=== PATIENT | female | born 1935 | race Caucasian/White ===

== ENCOUNTER 2020-01-05 15:54 | Emergency (ER) | payer MEDICARE, OTHER ==
[~2020-01-05] VITALS: Ht 152.4 cm; Wt 46.4 kg
[2020-01-05] MEDS ORDERED: [UNRECOGNIZED DRUG - OTHER] PO (16:00)
[2020-01-05] MEDS ORDERED: PANT-31 PO (16:00)
[2020-01-05] MEDS ORDERED: CIPR-278 PO (16:00)
[2020-01-05] MEDS ORDERED: 0.9% SODIUM CHLORIDE 10 ML SYRINGE IVP PRN (16:15)
[2020-01-05 16:39] LABS: BASOPHILS % (AUTO) 0.3 % (0.0-2.0); EOSINOPHILS % (AUTO) 0.3 % (1.0-6.0); HEMATOCRIT 36.1 % (36-46); HEMOGLOBIN 11.8 g/dL (12.0-16.0); LYMPHOCYTES # (AUTO) 2.3 K/uL (1.0-4.8); LYMPHOCYTES % (AUTO) 27.8 % (22.0-44.0); MEAN CORPUSCULAR HEMOGLOBIN 29.5 pg (26.0-34.0); MEAN CORPUSCULAR HGB CONC 32.6 G/dL (31.0-37.0); MEAN CORPUSCULAR VOLUME 90 fL (80-100); MONOCYTES # (AUTO) 0.6 K/uL (0.1-1.0); NEUTROPHILS # (AUTO) 5.4 K/uL (1.8-7.7); NEUTROPHILS % (AUTO) 64.6 % (40.0-70.0); PLATELET COUNT (AUTO) 274 K/uL (150-450); RED BLOOD CELL COUNT(AUTO) 3.99 MIL/uL (4.00-5.20)
[2020-01-05] MEDS ORDERED: SODIUM CHLORIDE 0.9% 1,000 ML IV ONE (16:45)
[2020-01-05 16:51] LABS: ANION GAP 10 mmol/L (8-16); CALCIUM, TOTAL 9.1 mg/dL (8.8-10.5); CARBON DIOXIDE 26 mmol/L (22-29); CHLORIDE 103 mmol/L (98-107); CREATININE 0.83 mg/dL (0.60-1.30); GLUCOSE,RANDOM 114 mg/dL (70-110); POTASSIUM 3.9 mmol/L (3.5-5.1); SODIUM SERUM 139 mmol/L (136-145); UREA NITROGEN, BLOOD 8 mg/dL (7-18)
[2020-01-05 16:53] LABS: GLOMERULAR FILTR. RATE CALC > 60 mL/min (>60)
[2020-01-05 16:57] LABS: ALANINE AMINOTRANSFERASE 27 U/L (12-78); ALKALINE PHOSPHATASE 53 U/L (46-116); ASPARTATE AMINOTRANSFERASE 24 U/L (15-37); BILIRUBIN,TOTAL 0.4 mg/dL (0.1-1.0); LIPASE 254 U/L (73-393); TOTAL PROTEIN, SERUM 6.6 g/dL (6.4-8.2)
[2020-01-05 17:00] LABS: B-TYPE NATRIURETIC PEPTIDE 83 pg/mL (0-100); LACTIC ACID 0.6 mmol/L (0.4-2.0)
[2020-01-05 17:18] LABS: APPEARANCE,URINE TURBID (CLEAR); BILIRUBIN,URINE NEGATIVE (NEGATIVE); GLUCOSE, URINE (UA) NEGATIVE (NEGATIVE); KETONES,URINE NEGATIVE (NEGATIVE); LEUKOCYTE ESTERASE ,URINE MODERATE (NEGATIVE); NITRATE,URINE POSITIVE (NEGATIVE); OCCULT BLOOD,URINE NEGATIVE (NEGATIVE); PROTEIN,URINE NEGATIVE (NEGATIVE)
[2020-01-05 17:31] LABS: BACTERIA,URINE Many /HPF (None Seen)
[2020-01-05 17:32] LABS: RBC,URINE None Seen /HPF (0-2); SQUAMOUS EPITHELIAL CELL,UR Moderate /LPF (None Seen)
[2020-01-05] MEDS ORDERED: ONDANSETRON HCL 4 MG/2 ML VIAL IVP ONE (18:00)
[2020-01-05] MEDS ORDERED: FentaNYL CITRATE-PF 100 MCG/2 ML VIAL IVP ONE (18:00)
[2020-01-05 18:25] VITALS: BP 138/80
== END 2020-01-05 19:05 | disposition home or self-care (01) ==
LOC: EMS 15:54
DX: N39.0 Urinary tract infection, site not specified (principal); R19.7 Diarrhea, unspecified; I10 Essential (primary) hypertension; Z90.89 Acquired absence of other organs; Z88.0 Allergy status to penicillin
CPT/HCPCS: 36415; 71045; 74176; 80053; 81001; 83605; 83690; 83880; 84484; 85025; 87086; 93005; 96361; 96374; 96375; 99285; J2405; J3010; J7030

== ENCOUNTER 2022-06-16 13:55 | Inpatient (IN) | payer MEDICARE, OTHER ==
[~2022-06-16] VITALS: Ht 147.3 cm; Wt 51.0 kg
[~2022-06-16 13:55] MED LIST: MECL-169 PO; PANT-31 PO
[2022-06-16] MEDS ORDERED: METR500 PO (14:07)
[2022-06-16] MEDS ORDERED: DOXY-354 PO (14:07)
[2022-06-16] MEDS ORDERED: ONDA-104 PO (14:07)
[2022-06-16] MEDS ORDERED: ONDANSETRON HCL 4 MG/2 ML VIAL IVP ONE ×2 (14:30→16:30)
[2022-06-16] MEDS ORDERED: SODIUM CHLORIDE 0.9% 1,000 ML IV ONE ×2 (14:30→18:45)
[2022-06-16 14:52] LABS: BASOPHILS % (AUTO) 0.5 % (0.0-2.0); EOSINOPHILS % (AUTO) 0.6 % (1.0-6.0); HEMATOCRIT 38.5 % (36-46); HEMOGLOBIN 12.7 g/dL (12.0-16.0); LYMPHOCYTES # (AUTO) 1.9 K/uL (1.0-4.8); LYMPHOCYTES % (AUTO) 24.9 % (22.0-44.0); MEAN CORPUSCULAR HEMOGLOBIN 29.8 pg (26.0-34.0); MEAN CORPUSCULAR HGB CONC 33.1 G/dL (31.0-37.0); MEAN CORPUSCULAR VOLUME 90 fL (80-100); MONOCYTES # (AUTO) 0.7 K/uL (0.1-1.0); MONOCYTES % (AUTO) 9.6 % (2.0-9.0); NEUTROPHILS % (AUTO) 64.4 % (40.0-70.0); PLATELET COUNT (AUTO) 275 K/uL (150-450); RED BLOOD CELL COUNT(AUTO) 4.26 MIL/uL (4.00-5.20); RED CELL DISTRIBUTION WIDTH 14.5 % (11.5-14.5)
[2022-06-16 14:54] LABS: COVID AG,FIA SOURCE NASAL SWAB
[2022-06-16 15:04] LABS: ANION GAP 8 mmol/L (8-16); CARBON DIOXIDE 26 mmol/L (22-29); CHLORIDE 103 mmol/L (98-107); GLOMERULAR FILTR. RATE CALC > 60 mL/min (>60); GLUCOSE,RANDOM 108 mg/dL (70-110); POTASSIUM 4.1 mmol/L (3.5-5.1); SODIUM SERUM 137 mmol/L (136-145); UREA NITROGEN, BLOOD 11 mg/dL (7-18)
[2022-06-16 15:10] LABS: ALANINE AMINOTRANSFERASE 20 U/L (12-78); ALBUMIN 3.9 g/dL (3.4-5.0); ALKALINE PHOSPHATASE 79 U/L (46-116); ASPARTATE AMINOTRANSFERASE 22 U/L (15-37); BILIRUBIN,TOTAL 0.4 mg/dL (0.1-1.0); LIPASE 439 U/L (73-393); TOTAL PROTEIN, SERUM 7.4 g/dL (6.4-8.2)
[2022-06-16 15:21] LABS: APPEARANCE,URINE CLEAR (CLEAR); BILIRUBIN,URINE NEGATIVE (NEGATIVE); GLUCOSE, URINE (UA) NEGATIVE (NEGATIVE); KETONES,URINE NEGATIVE (NEGATIVE); LEUKOCYTE ESTERASE ,URINE SMALL (NEGATIVE); NITRATE,URINE NEGATIVE (NEGATIVE); OCCULT BLOOD,URINE TRACE (NEGATIVE); PH,URINE 5.5 (5.0-8.0); PROTEIN,URINE NEGATIVE (NEGATIVE); SPECIFIC GRAVITIY, URINE 1.009 (1.003-1.030); UROBILINOGEN,URINE <=1.0 mg/dL (<=1.0)
[2022-06-16 15:22] LABS: INFLUENZA TYPE A NEGATIVE FOR TYPE A (NEGATIVE); INFLUENZA TYPE B NEGATIVE FOR TYPE B (NEGATIVE)
[2022-06-16 15:39] LABS: BACTERIA,URINE None Seen /HPF (None Seen); RBC,URINE 0-2 /HPF (0-2); SQUAMOUS EPITHELIAL CELL,UR Few /LPF (None Seen); WBC,URINE 0-2 /HPF (0-5)
[2022-06-16] MEDS ORDERED: MORPHINE SULFATE 4 MG/ML SYRINGE IVP ONE (16:30)
[2022-06-16] MEDS ORDERED: MORPHINE SULFATE 2 MG/ML SYRINGE IVP ONE (16:30)
[2022-06-16] MEDS ORDERED: DOXY100T21 PO (16:36)
[2022-06-16] MEDS ORDERED: CALC-26 PO (16:36)
[2022-06-16] MEDS ORDERED: ASPI-1444 PO (16:36)
[2022-06-16] MEDS ORDERED: AMLO2.5T29 PO (16:36)
[2022-06-16] MEDS ORDERED: VALS80TA32 PO (16:36)
[2022-06-16] MEDS ORDERED: VALS40TA11 PO (16:36)
[2022-06-16] MEDS ORDERED: KETO10DR3 OU (16:36)
[2022-06-16] MEDS ORDERED: PRAV20TA4 PO (16:36)
[2022-06-16] MEDS ORDERED: MULT-1387 PO (16:36)
[2022-06-16] MEDS ORDERED: MORPHINE SULFATE 2 MG/ML SYRINGE IVP PRN (18:45)
[2022-06-16] MEDS ORDERED: ONDANSETRON HCL 4 MG/2 ML VIAL IVP PRN (18:45)
[2022-06-16] MEDS ORDERED: ACETAMINOPHEN 325 MG TABLET PO PRN (18:45)
[2022-06-16] MEDS: PANTOPRAZOLE SODIUM 40 MG/VIAL IVP SCH (18:56)
[2022-06-16 21:39] VITALS: BP 158/67
[2022-06-16] MEDS: DOCUSATE SODIUM 100 MG CAPSULE PO SCH (21:55)
[2022-06-17 03:45] VITALS: BP 124/46
[2022-06-17 08:00] VITALS: BP 120/53
[2022-06-17] MEDS: PANTOPRAZOLE SODIUM 40 MG/VIAL IVP SCH (08:30)
[2022-06-17] MEDS: DOCUSATE SODIUM 100 MG CAPSULE PO SCH (08:30)
[2022-06-17 15:27] VITALS: BP 135/63
[2022-06-18 07:06] LABS: HEPATITIS C AB (EIA) Non Reactive (Non Reactive)
== END 2022-06-17 18:51 | disposition home or self-care (01) | DRG 440 ==
LOC: EMS 14:02 → 6S 19:47
PROVIDERS: ADMIT Internal Medicine; ATTEND Internal Medicine
DX: K85.90 Acute pancreatitis without necrosis or infection, unspecified (principal); Z20.822 Contact with and (suspected) exposure to COVID-19; K29.50 Unspecified chronic gastritis without bleeding; R19.7 Diarrhea, unspecified; I10 Essential (primary) hypertension; Z88.0 Allergy status to penicillin; Z79.899 Other long term (current) drug therapy; Z90.49 Acquired absence of other specified parts of digestive tract; Z79.82 Long term (current) use of aspirin
CPT/HCPCS: 71045; 76700; 80053; 81001; 83690; 84484; 85025; 86709; 86803; 87804; 93005; 99285; C9113; G0480; J2270; J2405; J7030; 36415-L1; 36415-TC